=== PATIENT | male | born 1985 | race Caucasian/White ===

== ENCOUNTER 2021-03-15 11:33 | Emergency (ER) | payer SELFPAY ==
[~2021-03-15] VITALS: Ht 188 cm; Wt 82.6 kg
[2021-03-15 11:51] VITALS: BP 132/66
[2021-03-15] MEDS ORDERED: IBUPROFEN 600 MG TAB PO ONE (12:15)
[2021-03-15] MEDS ORDERED: ACETAMINOPHEN 325 MG TAB PO ONE (12:15)
[2021-03-15] MEDS ORDERED: diphenhydrAMINE 50 MG CAP PO ONE (13:45)
[2021-03-15] MEDS ORDERED: ACET-10509 PO (14:23)
[2021-03-15] MEDS ORDERED: PROM118S6 PO (14:23)
[2021-03-15 14:39] VITALS: BP 119/74
== END 2021-03-15 14:40 | disposition home or self-care (01) ==
LOC: EDBD 11:33 → MED 11:33
DX: U07.1 COVID-19 (principal)
CPT/HCPCS: 87081; 87426; 99284; Q0163; U0003